=== PATIENT | male | born 1990 | race Caucasian/White ===

== ENCOUNTER 2016-07-15 22:19 | Emergency (ER) | payer SELFPAY ==
[~2016-07-15] VITALS: Ht 170.2 cm; Wt 84.0 kg
[~2016-07-15 22:19] MED LIST: AMO500 PO; HYDR-3498 PO; IBUP400T22 PO; IBUP800T25 PO
[2016-07-15 22:24] VITALS: Ht 170.2 cm; Wt 84.0 kg
== END 2016-07-15 23:35 | disposition left against medical advice (07) ==
LOC: FTE 22:19 → E/R 23:35
DX: Z53.21 Procedure and treatment not carried out due to patient leaving prior to being seen by health care provider (principal)